=== PATIENT | female | born 1975 | race Caucasian/White ===

== ENCOUNTER 2016-09-25 21:23 | Emergency (ER) | payer BC ==
--- NOTE | 2016-09-25 22:36 | ER PHYSICIAN DOCUMENTATION ---
Physician Documentation [facility] Name:Melissa Sarah Age:40 yrs Sex:Female :1975 Arrival Date:09/25/2016 Time:21:23 BedD-1 Private MD: Mihir Anthony Disposition: 09/25/16 22:01 Discharged to Home/Self Care. Impression: Acute Myofascial Strain. - Condition is Good. - Discharge Instructions: DEJUAN WRAP, Arm Injuries - MUSCLE STRAIN, Extremity. - Medical Reconciliation form form. - Follow up: Private Physician; When: 2 - 3 days; Reason: Worsening of condition. - Problem is new. - Symptoms are unchanged. HPI: 09/25 22:02 This 40 yrs old Female presents to ER with complaints of Arm Injury. sc 22:02 The patient or guardian complains of swelling, tenderness. The complaints affect the sc left tricep. Context: The problem was sustained at home, resulted from lifting or pulling, a heavy object, 4 days ago. Onset: The symptom(s)/episode began/occurred 2 day(s) ago. Treatment prior to arrival includes: no previous treatment. Historical: - Allergies: No known drug Allergies; - Tetanus: < 10 years. - Ebola Screening: : No symptoms or risks identified at this time. . - Immunization history: Flu Vaccine < 1 year. - Social history: Smoking status: Patient states was never smoker of tobacco. ROS: 22:03 Constitutional: Negative for fever, chills, and weight loss. sc Eyes: Negative for injury, pain, redness, and discharge. Neck: Negative for injury, pain, and swelling. Skin: Negative for injury, rash, and discoloration. 22:03 Neuro: Negative for headache, weakness, numbness, tingling, and seizure. sc 22:03 MS/extremity: Positive for swelling, tenderness, tingling. Exam: Constitutional: This is a well developed, well nourished patient who is awake, alert, and in no acute distress. Head/Face: Normocephalic, atraumatic. Skin: Warm, dry with normal turgor. Normal color with no rashes, no lesions, and no evidence of cellulitis. 22:03 Neuro: Awake and alert, GCS 15, oriented to person, place, time, and situation. sc Cranial nerves II-XII grossly intact. Motor strength 5/5 in all extremities. Sensory grossly intact. Cerebellar exam normal. Normal gait. 22:03 Musculoskeletal/extremity: Extremities: grossly normal except: swelling, tenderness, ROM: intact in all extremities, Circulation is intact in all extremities. Sensation intact. Vital Signs: 21:31 BP 138 / 87; Pulse 77; Resp 16; Temp 98.4(O); Pulse Ox 93% on R/A; Weight 83.91 kg; mv Height 5 ft. 7 in. (170.18 cm); 22:33 BP 121 / 74; Pulse 76; Resp 15; Temp 98.5; Pulse Ox 94% ; Pain 2/10; mk4 21:31 Body Mass Index 28.97 (83.91 kg, 170.18 cm) mv MDM: 21:30 Patient medically screened. wa 22:04 Differential diagnosis: contusion, tendonitis, no sxs compartment syndrome. Data wa reviewed: vital signs, nurses notes, and as a result, I will discharge patient. Counseling: I had a detailed discussion with the patient and/or guardian regarding: the historical points, exam findings, and any diagnostic results supporting the discharge/admit diagnosis, the need for outpatient follow up, for a referral to a specialist, to return to the emergency department if symptoms worsen or persist or if there are any questions or concerns that arise at home. 22:05 ED course: Ultrasound if not resolving or if pain worse.. wa 09/25 22:05 Order name: ORTHO: 3" Dejuan Wrap; Complete Time: 22:35 wa Dispensed Medications: No medications were administered Signatures: Mihir Krishnan MD MD wa Belkis Knight mk4
--- NOTE | 2016-09-25 22:36 | ER NURSING DOCUMENTATION ---
Nurse's Notes [facility] Name:Melissa Sarah Age:40 yrs Sex:Female :1975 Arrival Date:09/25/2016 Time:21:23 BedD-1 Private MD: Diagnosis:Acute Myofascial Strain Presentation: 09/25 21:30 Presenting complaint: Patient states: Pain in left biceps after lifting weights 5 days mk4 ago. Notes increase in size and numbness. Transition of care: Home. Notified ED Physician of Dr. Krishnan notified. 21:30 Method Of Arrival: Walk In 4 21:30 Acuity: JAMISON 3 mk4 22:17 Acuity: JAMISON 4 mk4 Triage Assessment: 22:17 Compartment Syndrome symptoms: unable to determine. numbness, negative for severe pain, mk4 negative for tingling. General: Appears uncomfortable, Behavior is cooperative. Pain: Complains of pain in left bicep Pain does not radiate. 22:33 Injury Description: from lifting weights. mk4 22:34 Musculoskeletal: Circulation, motion, and sensation intact Capillary refill < 3 seconds mk4 Range of motion limited in left shoulder Swelling present in left bicep. Historical: - Allergies: No known drug Allergies; - Tetanus: < 10 years. - Ebola Screening: : No symptoms or risks identified at this time. . - Immunization history: Flu Vaccine < 1 year. - Social history: Smoking status: Patient states was never smoker of tobacco. Screenin:30 Infectious Disease Risk None. Abuse screen: denies. Nutritional screening: No deficits mk4 noted. Assessment: 21:30 See Triage Assessment done by same RN. mk4 Vital Signs: 21:31 BP 138 / 87; Pulse 77; Resp 16; Temp 98.4(O); Pulse Ox 93% on R/A; Weight 83.91 kg; mv Height 5 ft. 7 in. (170.18 cm); 22:33 BP 121 / 74; Pulse 76; Resp 15; Temp 98.5; Pulse Ox 94% ; Pain 2/10; mk4 21:31 Body Mass Index 28.97 (83.91 kg, 170.18 cm) mv ED Course: 21:28 Patient arrived in ED. em3 21:30 Mihir Krishnan MD is Attending Physician. sc 21:30 Arm band placed on Bed in low position Call Light in Reach Gowned. Family accompanied 4 patient. 21:30 Valuables Remains with patient. 4 22:13 Belkis Knight is Primary Nurse. 4 22:16 Triage completed. 4 Administered Medications: No medications were administered Outcome: 22:01 Discharge ordered by . giovanny 22:33 Discharged to home [facility] 22:33 Condition: good 22:33 Discharge Assessment: Patient awake, alert and oriented x 3. No cognitive and/or functional deficits noted. Patient verbalized understanding of disposition instructions. 22:33 Discharge instructions given to patient, Instructed on discharge instructions, follow up and referral plans. Demonstrated understanding of instructions. 22:35 Patient left the ED. 4 Signatures: Mihir Krishnan MD MD ia Jono King em3 Belkis Knight 4 danny renee
== END 2016-09-25 22:36 | disposition home or self-care (01) ==
LOC: ER 21:23
DX: S46.312A Strain of muscle, fascia and tendon of triceps, left arm, initial encounter (principal); X50.0XXA Overexertion from strenuous movement or load, initial encounter; Y92.019 Unspecified place in single-family (private) house as the place of occurrence of the external cause; Y93.B9 Activity, other involving muscle strengthening exercises
CPT/HCPCS: 99281